=== PATIENT | female | born 2000 | race Caucasian/White ===

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

== ENCOUNTER 2021-01-12 16:48 | Emergency (ER) | payer OTHER ==
[~2021-01-12 16:48] MED LIST: CEFTIN250 MG/5 M PO; CEFUROXIME250 MG PO
[2021-01-12 18:04] LABS: HEMOGLOBIN 12.9 gm/dl (12.3-15.3); RED BLOOD COUNT 4.03 M/UL (4.00-5.10); WHITE BLOOD COUNT 9.9 K/UL (4.5-11.0)
[2021-01-12 18:31] LABS: BUN/CREATININE RATIO 12 (0-10)
== END 2021-01-12 20:30 | disposition home or self-care (01) ==
LOC: ER1 16:48
PROVIDERS: Preventive Medicine Occupational Medicine
DX: O30.001 Twin pregnancy, unspecified number of placenta and unspecified number of amniotic sacs, first trimester (principal); Z3A.13 13 weeks gestation of pregnancy
CPT/HCPCS: 76817; 80053; 85025; 86900; 86901; 99284; J7030